=== PATIENT | female | born 1950 | race Caucasian/White ===

== ENCOUNTER → 2017-03-19 | Emergency (ER) | payer SELFPAY ==
[~2017-03-19] VITALS: Ht 154.9 cm; Wt 61.4 kg
[~2017-03-19] MED LIST: INVANZ INJ1 G/VIAL IV; K-DUR 10 MEQ T10 MEQ; NORCO 325 MG-7.1 TAB PO; SYNTHROID0.075 MG/T PO; SYNTHROID0.175 MG PO; TENORETIC 50 501 TAB PO; ULTRAM 50MG TAB50 MG PO
[2017-03-19 12:27] VITALS: TEMP 97.1
[2017-03-19 14:20] VITALS: BP 174/94; PULSE 92
== END ==
LOC: COL.ER 12:25
DX: M54.5 Low back pain (principal); M62.830 Muscle spasm of back; I10 Essential (primary) hypertension; G89.29 Other chronic pain; E03.9 Hypothyroidism, unspecified; F17.210 Nicotine dependence, cigarettes, uncomplicated; W18.49XA Other slipping, tripping and stumbling without falling, initial encounter; Y92.002 Bathroom of unspecified non-institutional (private) residence as the place of occurrence of the external cause
CPT/HCPCS: J2360